=== PATIENT | female | born 1980 | race Asian ===

== ENCOUNTER 2025-04-14 17:42 | Observation (INO) ==
[2025-04-14] MEDS: LORazepam 2 MG/1 ML VIAL IV STA (18:51)
[2025-04-14 19:39] LABS: Basophils # (auto) 0.05 K/uL (0.00-0.20); Basophils % (auto) 0.9 %; Eosinophils # (auto) 0.12 K/uL (0.00-0.50); Eosinophils % (auto) 2.3 %; Hematocrit (blood only) 38.7 % (37.0-47.0); Hemoglobin 12.1 g/dl (12.0-16.0); Immature Granulocytes # (auto) 0.01 K/uL (0.01-0.20); Immature Granulocytes % (auto) 0.2 %; Mean Corpuscular Hemoglobin 23.1 pg (25.0-34.0); Mean Corpuscular Hgb Conc 31.3 g/dL (32.0-36.0); Mean Corpuscular Volume 73.9 fL (80.0-100.0); Monocytes # (auto) 0.28 K/uL (0.11-0.59); Monocytes % (auto) 5.3 %; Neutrophils # (auto) 2.92 K/uL (1.40-6.50); Neutrophils % (auto) 55.3 %; Platelet Count 290 K/uL (130-400); RDW Coefficient of Variation 12.9 % (11.5-14.5); Red Blood Count 5.24 M/uL (4.20-5.40); White Blood Count 5.28 K/ul (4.8-10.8)
--- NOTE | 2025-04-14 19:53 | Emergency Department Note ---
Impression & Plan Vertigo ED Provider Note NAME: BENITA MILLER AGE: 44 SEX: F : 1980 ARRIVES VIA: Walk-In INFORMANT: Patient, ED PROVIDER(S): Stephen Barron MD CHIEF COMPLAINT: Vertigo HPI: This is a 44-year-old female presenting for vertigo. Patient notes that she has been feeling dizzy over the past 1+ week. She was here previously with negative CT imaging and was discharged with meclizine. She notes that since being discharged, she is only had minimal improvement and today she feels her symptoms are worse again. She reports being scared to move her head as she feels very vertiginous when this happens. She reports her nausea or vomiting currently but does feel this way when she tries to get up or move around. She states she feels off balance. She reports no neck stiffness, no current headache. No diarrhea, chest pain, shortness of breath ROS: See above HPI for pertinent positives & negatives. A total of 10 systems reviewed and were otherwise negative. PAST MEDICAL HISTORY: See Below PAST SURGICAL HISTORY: See Below FAMILY HISTORY: See Below SOCIAL HISTORY: See Below HOME MEDICATIONS: See Below ALLERGIES: See Below VITALS: See Below PHYSICAL EXAMINATION: General: resting comfortably in no acute distress Head: Normocephalic and atraumatic Eyes: Normal inspection, extraocular muscles intact Ear, nose, throat: Normal external exam Neck: Normal range of motion Respiratory: lungs clear to auscultation bilaterally Cardiovascular: Regular rate/rhythm, no murmur GI: soft, nontender, no guarding or rebound Extremities: nontender, moves all extremities Neuro: The patient awake and alert, appropriately conversive, no focal deficits, symmetric faces, horizontal nystagmus, no dysmetria Skin: Warm, dry, and intact MEDICAL DECISION MAKING: This is a 44-year-old female presenting for vertigo. Patient was seen about 1 week ago for vertigo with negative CT imaging of the head. She continues to have symptoms. Will do screening blood work. Will try Ativan as this did help last time. She has been using meclizine without relief. If unsuccessful, may require admission due to persistent vertigo symptoms. - Bloodwork is reviewed showing no significant leukocytosis, anemia, electrolyte or creatinine abnormality. Negative troponin -Patient presents with symptoms, she is over 1 week of this and currently feels no better. Will admit the patient for symptomatic treatment and further workup. - Discussed care with Dr. Kimbrough Differential diagnosis: Central versus peripheral vertigo, migraine Diagnostics interpreted by me: ECG: ECG independently interpreted by me with normal sinus rhythm, rate of 97, normal axis, normal NH, normal QRS, normal QTc, no ST segment elevations consistent with STEMI criteria Cardiac Monitoring: An order was placed for continuous cardiac monitoring. The monitor shows a rate of 86 with sinus rhythm. Past Med/Surg History Problem List (Updated 04/14/25 @ 20:55 by Stephen Barron MD) Vertigo (Acute) Anemia (Acute) Hypokalemia (Acute) Thyroid nodule (Acute) Dizziness (Acute) Post-concussion headache Myofascial neck pain Amenorrhea Hypothyroid Thyroid nodule follows with [facility], first bx insuff cells, rpt bx benign per pt Fibroids Medical History (Updated 04/14/25 @ 20:55 by Stephen Barron MD) GERD (gastroesophageal reflux disease) H/O TB (tuberculosis) finished rx 2019 History of asthma uses inhaler rarely Endometrial polyp Surgical History Status post hysteroscopic polypectomy Dr Bergeron Family History (Updated 02/01/25 @ 10:29 by Elinor Marinelli MD) Mother Hypertension Father Kidney stones Other No family history of adverse response to anesthesia Social History (Updated 02/01/25 @ 10:25 by Elinor Marinelli MD) Smoking Status: Never smoker Second Hand Exposure: No; Do You Dip or Chew Tobacco: No; Hx Alcohol Use: No Hx Substance Use: No Preferred Language: Tongan Communication Ability: Effective 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 Beliefs That Will Affect Care: None marital status: Single Current Living Situation: Family Current Living Situation Comment: lives with parents current occupational status: disabled current occupation: not working due to concussion sustained at work Feels Safe at Home: Yes Assistive Devices: None Allergies Allergies Allergy/AdvReac Type Severity Reaction Status Date / Time Corticosteroids Allergy Severe FACIAL Verified 04/11/25 15:01 (Glucocorticoids) SWELLING shrimp AdvReac Intermediate Vomiting Verified 04/11/25 15:01 Home Meds Home Medications Medication Instructions Recorded Confirmed albuterol sulfate 90 mcg/actuation 2 puff inhalation QID PRN 10/15/22 04/14/25 aerosol inhaler Shortness Of Breath Or Wheezing amitriptyline 10 mg tablet 50 mg PO HS 11/02/24 04/14/25 riboflavin (vitamin B2) 400 mg 400 mg PO DAILY 11/02/24 04/14/25 tablet tizanidine 2 mg tablet 2 mg PO BID PRN Muscle Spasm 04/11/25 04/14/25 glucosamine sulfate 500 mg tablet 500 mg PO DAILY 04/14/25 04/14/25 (Glucosamine) Previous Rx's Medication Instructions Recorded methocarbamol 500 mg tablet 500 mg PO TID PRN muscle pain #90 02/07/25 tabs meclizine 25 mg chewable tablet 25 mg PO TID PRN dizziness #60 tabs 04/11/25 (Antivert) ondansetron 8 mg disintegrating 8 mg PO Q8H PRN nausea and 04/11/25 tablet vomiting #60 tabs Results & Data (ED) Vital Signs Vital Signs - 24 hr 04/14/25 17:52 04/14/25 18:03 04/14/25 18:08 Temperature 36.6 C Temperature Source Temporal Artery Scan Pulse Rate 108 H 97 H Pulse Rate [Left Apical] Pulse Rate from SpO2 Sensor Respiratory Rate 20 Respiratory Effort / Characteristics Non-Labored Spontaneous Respiratory Depth Normal Respiratory Pattern Regular Blood Pressure 113/78 112/86 Blood Pressure [Right Arm] Blood Pressure Mean 89 98 Blood Pressure Mean [Right Arm] Pulse Oximetry 96 Oxygen Delivery Method Room Air Sepsis Recent Fever Within 48 Hours No Sepsis New/Unexplained Change in Mental Status N/A Sepsis Action Taken by Nursing No Action Required 04/14/25 18:21 04/14/25 18:24 04/14/25 18:28 Temperature Temperature Source Pulse Rate 89 91 H Pulse Rate [Left Apical] Pulse Rate from SpO2 Sensor Respiratory Rate 19 22 Respiratory Effort / Characteristics Respiratory Depth Respiratory Pattern Blood Pressure 106/81 Blood Pressure [Right Arm] Blood Pressure Mean 92 Blood Pressure Mean [Right Arm] Pulse Oximetry Oxygen Delivery Method Sepsis Recent Fever Within 48 Hours Sepsis New/Unexplained Change in Mental Status Sepsis Action Taken by Nursing 04/14/25 18:28 04/14/25 18:28 04/14/25 18:29 Temperature Temperature Source Pulse Rate Pulse Rate [Left Apical] 85 Pulse Rate from SpO2 Sensor Respiratory Rate 20 Respiratory Effort / Characteristics Non-Labored Spontaneous Respiratory Depth Normal Respiratory Pattern Regular Blood Pressure 106/81 106/81 Blood Pressure [Right Arm] 106/81 Blood Pressure Mean 92 92 Blood Pressure Mean [Right Arm] 89 Pulse Oximetry 94 Oxygen Delivery Method Room Air Sepsis Recent Fever Within 48 Hours Sepsis New/Unexplained Change in Mental Status Sepsis Action Taken by Nursing 04/14/25 18:33 04/14/25 19:00 04/14/25 19:00 Temperature Temperature Source Pulse Rate 86 Pulse Rate [Left Apical] Pulse Rate from SpO2 Sensor 86 Respiratory Rate 19 Respiratory Effort / Characteristics Respiratory Depth Respiratory Pattern Blood Pressure 100/73 100/73 Blood Pressure [Right Arm] Blood Pressure Mean 83 83 Blood Pressure Mean [Right Arm] Pulse Oximetry 95 Oxygen Delivery Method Sepsis Recent Fever Within 48 Hours Sepsis New/Unexplained Change in Mental Status Sepsis Action Taken by Nursing 04/14/25 19:03 04/14/25 19:30 04/14/25 19:30 Temperature Temperature Source Pulse Rate 82 Pulse Rate [Left Apical] Pulse Rate from SpO2 Sensor 82 Respiratory Rate 16 Respiratory Effort / Characteristics Respiratory Depth Respiratory Pattern Blood Pressure 106/72 106/72 Blood Pressure [Right Arm] Blood Pressure Mean 84 84 Blood Pressure Mean [Right Arm] Pulse Oximetry 94 Oxygen Delivery Method Sepsis Recent Fever Within 48 Hours Sepsis New/Unexplained Change in Mental Status Sepsis Action Taken by Nursing 04/14/25 19:39 04/14/25 20:00 04/14/25 20:18 Temperature Temperature Source Pulse Rate 79 86 Pulse Rate [Left Apical] Pulse Rate from SpO2 Sensor 79 85 Respiratory Rate 18 18 Respiratory Effort / Characteristics Respiratory Depth Respiratory Pattern Blood Pressure 112/87 Blood Pressure [Right Arm] Blood Pressure Mean 97 Blood Pressure Mean [Right Arm] Pulse Oximetry 94 95 Oxygen Delivery Method Sepsis Recent Fever Within 48 Hours Sepsis New/Unexplained Change in Mental Status Sepsis Action Taken by Nursing Laboratory Data 04/14/25 19:21 04/14/25 19:21 Lab Results 04/14/25 Range/Units 19:21 WBC 5.28 (4.8-10.8) K/ul RBC 5.24 (4.20-5.40) M/uL Hgb 12.1 (12.0-16.0) g/dl Hct 38.7 (37.0-47.0) % MCV 73.9 L (80.0-100.0) fL MCH 23.1 L (25.0-34.0) pg MCHC 31.3 L (32.0-36.0) g/dL RDW Std Deviation 34.0 L (36.4-46.3) fL RDW Coeff of Linda 12.9 (11.5-14.5) % Plt Count 290 (130-400) K/uL MPV 11.0 (9.4-12.4) fL Immature Gran % (Auto) 0.2 % Neut % (Auto) 55.3 % Lymph % (Auto) 36.0 % [place] % (Auto) 5.3 % Eos % (Auto) 2.3 % Baso % (Auto) 0.9 % Neut # (Auto) 2.92 (1.40-6.50) K/uL Lymph # (Auto) 1.90 (1.20-3.40) K/uL [place] # (Auto) 0.28 (0.11-0.59) K/uL Eos # (Auto) 0.12 (0.00-0.50) K/uL Baso # (Auto) 0.05 (0.00-0.20) K/uL Immature Gran # (Auto) 0.01 (0.01-0.20) K/uL Sodium 138 (136-145) mmol/L Potassium 4.0 (3.5-5.1) mmol/L Chloride 104 (98-107) mmol/L Carbon Dioxide 28 (21-32) mmol/L Anion Gap 6 (3-11) BUN 11 (6-23) mg/dl Creatinine 0.53 L (0.6-1.2) mg/dl Est Cr Clr Drug Dosing 102.9 ml/min eGFR 115.44 BUN/Creatinine Ratio 20.8 H (10-20) Glucose 94 (70-99(Fasting)) mg/dl Calcium 9.7 (8.6-10.3) mg/dl Total Bilirubin 0.5 (0.2-1.0) mg/dl AST 24 (13-39) U/L ALT 22 (7-52) U/L Alkaline Phosphatase 91 (34-104) U/L Troponin I High Sens 2.6 (0-14) pg/ml Total Protein 8.2 (6.0-8.3) gm/dl Albumin 4.3 (3.4-5.0) gm/dl Globulin 3.9 (2.5-4.0) gm/dl Albumin/Globulin Ratio 1.1 (0.9-2) Administered Medications Discontinued Medications Lorazepam (Lorazepam 2 Mg/1 Ml Vial) 1 mg IV NOW STA Stop: 04/14/25 18:31 Last Admin: 04/14/25 18:51 Dose: 1 mg Documented By: [facility] Discharge Plan Visit Data Chief Complaint: Dizziness Stated Complaint: DIZZY,LOSS OF BALANCE ED Provider: Stephen Barron Discharge Problem: Vertigo Patient Disposition: Admitted As Inpatient Condition: Fair Forms Stand Alone Forms: My [facility], Important Visit Information Prescriptions Prescriptions: No Action riboflavin (vitamin B2) 400 mg tablet 400 mg PO DAILY methocarbamol 500 mg tablet 500 mg PO TID PRN (Reason: muscle pain) Qty: 90 0RF tizanidine 2 mg tablet 2 mg PO BID PRN (Reason: Muscle Spasm) meclizine [Antivert] 25 mg tablet,chewable 25 mg PO TID PRN (Reason: dizziness) Qty: 60 1RF ondansetron 8 mg tablet,disintegrating 8 mg PO Q8H PRN (Reason: nausea and vomiting) Qty: 60 0RF albuterol sulfate 90 mcg/actuation Hfa Aerosol Inhaler 2 puff INHALATION QID PRN (Reason: Shortness Of Breath Or Wheezing) glucosamine sulfate [Glucosamine] 500 mg Tablet 500 mg PO DAILY Rx Instructions: administer with a meal amitriptyline 10 mg tablet 50 mg PO HS Referrals Referrals: Sofy Costa MD [Primary Care Provider] -
[2025-04-14 19:57] LABS: Albumin Globulin Ratio 1.1 (0.9-2); BUN Creatinine Ratio 20.8 (10-20); Bilirubin,Total 0.5 mg/dl (0.2-1.0); Calcium 9.7 mg/dl (8.6-10.3); Creatinine Clr Calc Pharmacy 102.9 ml/min; Globulin 3.9 gm/dl (2.5-4.0); Total Protein 8.2 gm/dl (6.0-8.3)
[2025-04-14 20:03] LABS: Troponin I High Sensitivity 2.6 pg/ml (0-14)
--- NOTE | 2025-04-14 20:39 | History & Physical Report ---
Date of Service April 14, 2025 Assessment & Plan (1) Vertigo: Plan 44yo female presenting with persistent vertiginous symptoms x 1 week. She has been taking Meclizine at home with minimal improvement. #Vertigo - history, physical and workup suggestive of peripheral source, likely BPPV -Observation to medical -Continue Meclizine 25mg po TID scheduled -Valium 2mg po BID -Maintain fall precautions -LR x 1L -PT/OT evaluation -Tylenol PRN History of Present Illness Chief Complaint: vertigo Primary Care Provider: Sofy Costa MD Caitlin Whiting is a pleasant 44yo female with history of GERD, Hypothyroidism presenting with persistent vertiginous symptoms. Patient reports everything is "shaky and unstable". Her symptoms are worse with positional changes and with turning her head. Seem to be worse on the right side. She has a mild headache. Denies fever, chills, falls, trauma, focal numbness/tingling or weakness. No recent URI symptoms. Patient was seen int he ER on 04/09/25 with these symptoms. She had a largely normal workup at that time including negative CT of the brain and CTA of the head and neck. She was treated with NSS, Toradol, Ativan and Meclizine at that time with improvement so was discharged home. She was seen by her PCP on 04/11/25 with similar complaints and thought to be secondary to BPPV. She was given instructions to perform Eply maneuver at home as well as prescriptions for Zofran and Meclizine. Patient has been taking Meclizine 25mg po TID with very minimal improvement in symptoms. She still feels very unsteady on her feet and states that her vision is very "shaky". She lives with her brother but is having difficulty managing at home. In the ER she is afebrile, HD stable ER Course: Ativan Allergies Allergy/AdvReac Type Severity Reaction Status Date / Time Corticosteroids Allergy Severe FACIAL Verified 04/11/25 15:01 (Glucocorticoids) SWELLING shrimp AdvReac Intermediate Vomiting Verified 04/11/25 15:01 Home Medications Medication Instructions Recorded Confirmed Type albuterol sulfate 90 mcg/actuation 2 puff inhalation QID PRN 10/15/22 04/14/25 History aerosol inhaler Shortness Of Breath Or Wheezing amitriptyline 10 mg tablet 50 mg PO HS 11/02/24 04/14/25 History riboflavin (vitamin B2) 400 mg 400 mg PO DAILY 11/02/24 04/14/25 History tablet methocarbamol 500 mg tablet 500 mg PO TID PRN muscle pain #90 02/07/25 04/14/25 Rx tabs meclizine 25 mg chewable tablet 25 mg PO TID PRN dizziness #60 tabs 04/11/25 04/14/25 Rx (Antivert) ondansetron 8 mg disintegrating 8 mg PO Q8H PRN nausea and 04/11/25 04/14/25 Rx tablet vomiting #60 tabs tizanidine 2 mg tablet 2 mg PO BID PRN Muscle Spasm 04/11/25 04/14/25 History glucosamine sulfate 500 mg tablet 500 mg PO DAILY 04/14/25 04/14/25 History (Glucosamine) Past Med/Surg History Problem List Vertigo (Acute) Anemia (Acute) Hypokalemia (Acute) Thyroid nodule (Acute) Dizziness (Acute) Post-concussion headache Myofascial neck pain Amenorrhea Hypothyroid Thyroid nodule follows with [facility], first bx insuff cells, rpt bx benign per pt Fibroids Medical History GERD (gastroesophageal reflux disease) H/O TB (tuberculosis) finished rx 2019 History of asthma uses inhaler rarely Endometrial polyp Surgical History Status post hysteroscopic polypectomy Dr Bergeron Family History Mother Hypertension Father Kidney stones Other No family history of adverse response to anesthesia Social History Smoking Status: Never smoker Second Hand Exposure: No; Do You Dip or Chew Tobacco: No; Hx Alcohol Use: No Hx Substance Use: No Preferred Language: Mongolian Communication Ability: Effective Risk Prevention Engineer Required: No Beliefs That Will Affect Care: None marital status: Single Current Living Situation: Family Current Living Situation Comment: lives with parents current occupational status: disabled current occupation: not working due to concussion sustained at work Feels Safe at Home: Yes Assistive Devices: None Review of Systems Review of Systems: All systems reviewed & are unremarkable except as noted in HPI & below Physical Exam Physical Exam: General: patient resting comfortably, NAD, non-toxic in appearance, AA&O x 4 Skin: warm, dry, intact, no rashes or lesions HEENT: NC/AT, PERRL, EOMI, anicteric sclera, conjunctiva without injection, external ear normal to inspection and nontender, nares patent, slightly dry mucus membranes, dentition intact, no oropharyngeal lesions, neck supple, trachea midline, no LAD, no thyromegaly, no JVD Heart: +S1/S2, regular, no m/r/g Lungs: equal air entry bilaterally, no rales/rhonchi/wheezes Abd: +BS, soft, NT/ND, no masses/organomegaly/ascites Ext: warm, 2+ pulses in UE/LE bilaterally, no clubbing/cyanosis or edema Neuro: nonfocal, patient AA&O x 4, speech intact, no facial droop, moving all extremities on command with equal strength 5/5 Gait slow but steady HIINTS exam - patient with unidirectional horizontal nystagmus. Corrective saccade present on head impulse testing (patient did have a difficult time tolerating this maneuver). No correction present on test of skew. Findings suggestive of benign findings - BPPV. Results & Data Results & Data Vital Signs (Past 12 Hours) Vital Signs Temp Pulse Pulse Resp BP BP Pulse Ox 04/14/25 20:18 86 18 95 04/14/25 20:00 112/87 04/14/25 19:39 79 18 94 04/14/25 19:30 106/72 04/14/25 19:30 106/72 04/14/25 19:03 82 16 94 04/14/25 19:00 100/73 04/14/25 19:00 100/73 04/14/25 18:33 86 19 95 04/14/25 18:29 85 20 106/81 94 04/14/25 18:28 106/81 04/14/25 18:28 106/81 04/14/25 18:28 106/81 04/14/25 18:24 91 H 22 04/14/25 18:21 89 19 04/14/25 18:08 97 H 04/14/25 18:03 112/86 06/28/25 17:52 36.6 C 108 H 20 113/78 96 O2 Del Method 04/14/25 20:18 04/14/25 20:00 04/14/25 19:39 04/14/25 19:30 04/14/25 19:30 04/14/25 19:03 04/14/25 19:00 04/14/25 19:00 04/14/25 18:33 04/14/25 18:29 Room Air 04/14/25 18:28 04/14/25 18:28 04/14/25 18:28 04/14/25 18:24 04/14/25 18:21 04/14/25 18:08 04/14/25 18:03 04/14/25 17:52 Room Air Laboratory Results Laboratory Results WBC 5.28 K/ul (4.8-10.8) 04/14/25 19:21 RBC 5.24 M/uL (4.20-5.40) 04/14/25 19:21 Hgb 12.1 g/dl (12.0-16.0) 04/14/25 19:21 Hct 38.7 % (37.0-47.0) 04/14/25 19:21 MCV 73.9 fL (80.0-100.0) L 04/14/25 19:21 MCH 23.1 pg (25.0-34.0) L 04/14/25 19:21 MCHC 31.3 g/dL (32.0-36.0) L 04/14/25 19:21 RDW Std Deviation 34.0 fL (36.4-46.3) L 04/14/25 19:21 RDW Coeff of Linda 12.9 % (11.5-14.5) 04/14/25 19:21 Plt Count 290 K/uL (130-400) 04/14/25 19:21 MPV 11.0 fL (9.4-12.4) 04/14/25 19:21 Immature Gran % (Auto) 0.2 % 04/14/25 19:21 Neut % (Auto) 55.3 % 04/14/25 19:21 Lymph % (Auto) 36.0 % 04/14/25 19:21 [place] % (Auto) 5.3 % 04/14/25 19:21 Eos % (Auto) 2.3 % 04/14/25 19:21 Baso % (Auto) 0.9 % 04/14/25 19:21 Neut # (Auto) 2.92 K/uL (1.40-6.50) 04/14/25 19:21 Lymph # (Auto) 1.90 K/uL (1.20-3.40) 04/14/25 19:21 [place] # (Auto) 0.28 K/uL (0.11-0.59) 04/14/25 19:21 Eos # (Auto) 0.12 K/uL (0.00-0.50) 04/14/25 19:21 Baso # (Auto) 0.05 K/uL (0.00-0.20) 04/14/25 19:21 Immature Gran # (Auto) 0.01 K/uL (0.01-0.20) 04/14/25 19:21 Sodium 138 mmol/L (136-145) 04/14/25 19:21 Potassium 4.0 mmol/L (3.5-5.1) 04/14/25 19:21 Chloride 104 mmol/L (98-107) 04/14/25 19:21 Carbon Dioxide 28 mmol/L (21-32) 04/14/25 19:21 Anion Gap 6 (3-11) 04/14/25 19:21 BUN 11 mg/dl (6-23) 04/14/25 19:21 Creatinine 0.53 mg/dl (0.6-1.2) L 04/14/25 19:21 Est Cr Clr Drug Dosing 102.9 ml/min 04/14/25 19:21 eGFR 115.44 04/14/25 19:21 BUN/Creatinine Ratio 20.8 (10-20) H 04/14/25 19:21 Glucose 94 mg/dl (70-99(Fasting)) 04/14/25 19:21 Calcium 9.7 mg/dl (8.6-10.3) 04/14/25 19:21 Total Bilirubin 0.5 mg/dl (0.2-1.0) 04/14/25 19:21 AST 24 U/L (13-39) 04/14/25 19:21 ALT 22 U/L (7-52) 04/14/25 19:21 Alkaline Phosphatase 91 U/L (34-104) 04/14/25 19:21 Troponin I High Sens 2.6 pg/ml (0-14) 04/14/25 19:21 Total Protein 8.2 gm/dl (6.0-8.3) 04/14/25 19:21 Albumin 4.3 gm/dl (3.4-5.0) 04/14/25 19:21 Globulin 3.9 gm/dl (2.5-4.0) 04/14/25 19:21 Albumin/Globulin Ratio 1.1 (0.9-2) 04/14/25 19:21 PG Care Time/CCT Total # of Minutes Spent Total Time Spent with Patient: Total time spent is greater than 50% in coordination of care (as documented) at patient's floor/unit and/or counseling patient: Coding Level of Care Code 67828 INT INP/OBS CARE 2/55MIN Diagnoses Vertigo R42
[2025-04-14 21:36] VITALS: RESP 16
[2025-04-14] MEDS ORDERED: ACETAMINOPHEN 325 MG TAB PO PRN (23:02)
[2025-04-14] MEDS ORDERED: ONDANSETRON INJ 2 MG/ML 2 ML VIAL IV PRN (23:02)
[2025-04-14] MEDS ORDERED: ALBUTEROL HFA 8 GM INHALER INH PRN (23:02)
[2025-04-14] MEDS: diazePAM 2 MG TABLET PO SCH (23:48)
[2025-04-14] MEDS: MECLIZINE HCL 25 MG TAB PO SCH (23:48)
[2025-04-14] MEDS: LACTATED RINGER'S 1,000 ML IV SCH (23:48)
[2025-04-15] MEDS: AMITRIPTYLINE HCL 50 MG TAB PO SCH
[2025-04-15] MEDS: AMITRIPTYLINE HCL 10 MG TAB PO SCH (00:06)
[2025-04-15 01:15] VITALS: TEMP 98.2
[2025-04-15 07:05] VITALS: BP 117/81; PULSE 85; O2SAT 95
[2025-04-15] MEDS: GADOBUTROL 65ML VIAL IV ONE (10:57)
--- NOTE | 2025-04-15 11:54 | Electrocardiogram Report ---
Test Reason : Blood Pressure : */* mmHG Vent. Rate : 97 BPM Atrial Rate : 97 BPM P-R Int : 132 ms QRS Dur : 70 ms QT Int : 352 ms P-R-T Axes : 54 33 38 degrees QTcB Int : 447 ms Normal sinus rhythm Nonspecific ST abnormality When compared with ECG of 09-Apr-2025 13:58, No significant change was found Confirmed by Matt Leung ([id number]) on 04/15/2025 11:54:11 AM Referred By: Confirmed By: Matt Leung
--- NOTE | 2025-04-15 12:03 | Magnetic Resonance Report ---
MR brain IAC wo/w con HISTORY: 44 years-old Female vertigo acute vertigo COMPARISON: CTA head 04/09/2025, brain MRI 10/01/2023 TECHNIQUE: Multiplanar multisequence MRI of the brain was obtained with and without IV contrast utili [facility] internal auditory canal protocol FINDINGS: No restricted diffusion to suggest acute or subacute infarct. Midline structures appear unremarkable. No acute intracranial hemorrhage, midline shift, abnormal extra-axial collection, hydrocephalus or i ntra-axial mass. Normal volume of the brain parenchyma. There are a few scattered T2/FLAIR hyperinten se foci again noted within the white matter of the cerebrum, unchanged. Cerebral venous sinuses and major arterial flow voids appear patent. Skull, orbits and soft tissues a re unremarkable. Mastoid air cells and paranasal sinuses appear clear. Internal auditory canals, 7th and 8th cranial nerves appear normal. A loop of the left anterior inferior cerebellar artery extends approximately 50% into the adjacent internal auditory canal. No abnormal enhancement. IMPRESSION: 1. No acute intracranial abnormality. 2. No mass or abnormal enhancement of the internal auditory canals. 3. Unchanged mild nonspecific T2/FLAIR hyperintense foci within the white matter. 4. No abnormal enhancement. ACT 112: Negative or not required by law. The above report was generated using voice recognition software. It may contain grammatical, syntax o r spelling errors. Electronically signed by: Anibal Garzon M.D. 04/15/2025 12:01 PM
--- NOTE | 2025-04-15 13:19 | Discharge Summary ---
Discharge Summary Date of Service April 15, 2025 Principal Dx & Hospital Course #1 = Principal Diagnosis (1) Vertigo: Plan 44yo female presenting with persistent vertiginous symptoms x 1 week. She has been taking Meclizine at home with minimal improvement. #Vertigo history, physical and workup suggestive of peripheral source, likely BPPV Continue Meclizine 25mg po TID prn Valium 2mg po BID prn s/p LR x 1L Close follow up w/ PCP for continued management of symptoms Auditory canal MRI negative. Patient discharged home 04/15 Admission HPI Per Admitting Provider Caitlin Whiting is a pleasant 44yo female with history of GERD, Hypothyroidism presenting with persistent vertiginous symptoms. Patient reports everything is "shaky and unstable". Her symptoms are worse with positional changes and with turning her head. Seem to be worse on the right side. She has a mild headache. Denies fever, chills, falls, trauma, focal numbness/tingling or weakness. No recent URI symptoms. Patient was seen int he ER on 04/09/25 with these symptoms. She had a largely normal workup at that time including negative CT of the brain and CTA of the head and neck. She was treated with NSS, Toradol, Ativan and Meclizine at that time with improvement so was discharged home. She was seen by her PCP on 04/11/25 with similar complaints and thought to be secondary to BPPV. She was given instructions to perform Eply maneuver at home as well as prescriptions for Zofran and Meclizine. Patient has been taking Meclizine 25mg po TID with very minimal improvement in symptoms. She still feels very unsteady on her feet and states that her vision is very "shaky". She lives with her brother but is having difficulty managing at home. In the ER she is afebrile, HD stable ER Course: Ativan Discharge Exam General: no acute distress; non-toxic appearing; well-nourished; cooperative HEENT: normocephalic, atraumatic; no scleral icterus; PERRLA w/ EOMs intact; vision and hearing grossly intact Neck: trachea midline Skin: warm, dry without signs of tenting; no cyanosis; no rashes, bruising, lesions, or erythema noted Lungs: no acute respiratory distress; symmetrical chest wall expansion MSK: no edema noted in the LEs b/l, nonerythematous Neuro: A&Ox3; normal mood and affect; fluent speech; no focal deficits Discharge Plan Discharge Items Patient Disposition: Home - Self-Care Reason For Visit: PERSISTENT VERTIGO Discharge Diagnosis: Vertigo Condition on Discharge: Fair Activity: Resume your previous activity Non-emergency contact: Primary Care Provider Call non-emergency contact if: you have any medication questions and your symptoms worsen Follow-up/Referrals: Sofy Costa MD [Primary Care Provider] - Diet: Regular Addtl Attending Provider Instructions: Ms. Whiting, You were recently hospitalized for observation secondary to dizziness. You had an MRI of your internal auditory canal that was negative. You were treated with Meclizine and Valium with improvement of your symptoms. Please see recommendations below regarding your discharge. Please continue using Meclizine 3 times daily as needed. Please use Valium twice daily as needed. - Please do not drive while taking this medication. Please follow up with your PCP within the next 1-2 weeks to reassess your symptoms. Please drink plenty of fluids to stay hydrated. Please resume the remainder of your medications. If you develop chest pain, shortness of breath, fever please report back to the ED for further care. Sincerely, Lexie Mcintosh PA-C Pending Studies at Discharge: No Stand-Alone Forms: [facility], Smoking Cessation Medications and DC Order Prescriptions: New diazepam 2 mg Tablet 2 mg PO BID Qty: 6 0RF Continued riboflavin (vitamin B2) 400 mg tablet 400 mg PO DAILY methocarbamol 500 mg tablet 500 mg PO TID PRN (Reason: muscle pain) Qty: 90 0RF tizanidine 2 mg tablet 2 mg PO BID PRN (Reason: Muscle Spasm) meclizine [Antivert] 25 mg tablet,chewable 25 mg PO TID PRN (Reason: dizziness) Qty: 60 1RF ondansetron 8 mg tablet,disintegrating 8 mg PO Q8H PRN (Reason: nausea and vomiting) Qty: 60 0RF albuterol sulfate 90 mcg/actuation Hfa Aerosol Inhaler 2 puff INHALATION QID PRN (Reason: Shortness Of Breath Or Wheezing) glucosamine sulfate [Glucosamine] 500 mg Tablet 500 mg PO DAILY Rx Instructions: administer with a meal amitriptyline 10 mg tablet 10 mg PO HS Discharge Orders: Discharge Order (Routine); Ordered 04/15/25 Ordered By: Lexie Mcintosh Admission Data Admit Date/Time: 04/14/25 20:39 Attending Provider: Tad Delgado Admit Provider: Oanh Kimbrough Primary Care Provider: Sofy Costa Other Providers: Oanh Kimbrough Hospital Stay Data Consultations 04/14/25 20:12 ED Decision to Admit Stat Diagnostic Imagining Performed 04/15/25 09:05 MR brain IAC wo/w con Urgent Pending Results Patient Have Any Pending Studies at Discharge: No Discharge Instructions Given to Patient (Per Discharging Provider) Ms. Whiting, You were recently hospitalized for observation secondary to dizziness. You had an MRI of your internal auditory canal that was negative. You were treated with Meclizine and Valium with improvement of your symptoms. Please see recommendations below regarding your discharge. Please continue using Meclizine 3 times daily as needed. Please use Valium twice daily as needed. - Please do not drive while taking this medication. Please follow up with your PCP within the next 1-2 weeks to reassess your symptoms. Please drink plenty of fluids to stay hydrated. Please resume the remainder of your medications. If you develop chest pain, shortness of breath, fever please report back to the ED for further care. Sincerely, Lexie Mcintosh PA-C Total Time Total Time Spent Total Time Spent (In Minutes): 35 Total Time Includes: Examination of the Patient, Discharge Planning and Medication Reconciliation Coding Level of Care Code 18002 INP/OBS DISCH >30 MIN Diagnoses Vertigo R42
[2025-04-19 07:42] LABS: Babesia microti DNA Not Detected (Not Detected)
== END 2025-04-15 13:16 | disposition home or self-care (01) ==
LOC: ED 17:42 → 3N 17:42 → SUATTDRO 20:39 → 3N 22:26